=== PATIENT | male | born 1970 | race Caucasian/White ===

== ENCOUNTER 2016-09-14 00:41 | Emergency (ER) | payer OTHER ==
[~2016-09-14] VITALS: Ht 188 cm; Wt 78.7 kg
[~2016-09-14 00:41] MED LIST: CLEOCIN300 MG PO; FLEXERIL10 MG PO; LORTAB 5-325 M1 EACH PO; LORTAB 5-500 T1 EACH PO; MOTRIN600 MG PO; MOTRIN800 MG PO; NAPROSYN250 MG PO; NO HOME MEDS; NORCO 5/3251 TABLET PO; OXAYDO5 MG PO; OXYCODONE HCL5 MG PO; OXYCONTIN20 MG PO; SUMATRIPTAN SUC50 MG PO; TOPAMAX25 MG PO; ZOFRAN4 MG PO
[2016-09-14 00:44] VITALS: BP 116/76
== END 2016-09-14 02:07 | disposition left against medical advice (07) ==
LOC: EME 00:41
DX: F10.129 Alcohol abuse with intoxication, unspecified (principal); F17.200 Nicotine dependence, unspecified, uncomplicated
CPT/HCPCS: 99281; 99284

== ENCOUNTER 2017-02-11 13:19 | Emergency (ER) | payer OTHER ==
[~2017-02-11] VITALS: Ht 188 cm; Wt 73.3 kg
[2017-02-11] MEDS ORDERED: MOTRIN800 MG PO (14:34)
== END 2017-02-11 15:23 | disposition home or self-care (01) ==
LOC: EME 13:19
DX: S93.601A Unspecified sprain of right foot, initial encounter (principal); W22.8XXA Striking against or struck by other objects, initial encounter; Y93.89 Activity, other specified
CPT/HCPCS: 73630; 99281; 99284

== ENCOUNTER 2017-04-18 05:51 | Emergency (ER) | payer OTHER ==
[~2017-04-18] VITALS: Ht 188 cm; Wt 78.5 kg
[2017-04-18 06:34] LABS: INFLUENZA A VIRAL ANTIGEN NEGATIVE; INFLUENZA B VIRAL ANTIGEN NEGATIVE
[2017-04-18] MEDS ORDERED: KEPPRA1000 MG PO (07:27)
[2017-04-18] MEDS ORDERED: ZITHROMAX Z-PA250 MG PO (08:46)
[2017-04-18] MEDS ORDERED: PROVENTIL HFA6.7 GM IH (08:46)
[2017-04-18 09:06] VITALS: BP 123/82
== END 2017-04-18 09:07 | disposition home or self-care (01) ==
LOC: EME 05:51
DX: J20.8 Acute bronchitis due to other specified organisms (principal); B34.9 Viral infection, unspecified; F17.200 Nicotine dependence, unspecified, uncomplicated
CPT/HCPCS: 71020; 87502; 94640; 99281; 99284

== ENCOUNTER 2017-10-11 13:36 | Observation (INO) | payer OTHER ==
[~2017-10-11] VITALS: Ht 188 cm; Wt 88.5 kg
[~2017-10-11 13:36] MED LIST changes: +KEPPRA1000 MG PO; +PROVENTIL HFA6.7 GM IH; +ZITHROMAX Z-PA250 MG PO
[2017-10-11 14:50] LABS: HEMATOCRIT 47.3 % (38.0-50.0); HEMOGLOBIN 16.4 G/DL (12.5-16.6); MCH 33.4 PG (29.0-34.0); MCHC 34.7 G/DL (30.0-36.0); MCV 96.3 FL (86-99); PLATELET COUNT 252 K/uL (156-360); RBC DIS.WIDTH-CV 13.8 % (11.8-14.6); RBC DIS.WIDTH-SD 48.8 % (39-53); RED BLOOD COUNT 4.91 M/uL (4.00-5.50); WHITE BLOOD COUNT 10.1 K/uL (4.1-10.2)
[2017-10-11 15:01] LABS: CHLORIDE 106 mEq/L (99-109); POTASSIUM 4.2 mEq/L (3.7-5.4); SODIUM 142 mEq/L (136-147)
[2017-10-11 15:02] LABS: GLUCOSE 88 mg/dL (70-99)
[2017-10-11 15:06] LABS: CREATININE 0.9 mg/dL (0.6-1.3); GFR ESTIMATE (CALCULATED) > 59 mL/min/ (58.99-99999)
[2017-10-11 15:07] LABS: UREA NITROGEN (BUN) 16 mg/dL (9-23)
[2017-10-11 18:26] LABS: TROP-I INTERPRETATION NEGATIVE; TROPONIN-I < 0.01 ng/mL (0.0-0.30)
[2017-10-11] MEDS ORDERED: INDERAL60 MG PO (19:25)
[2017-10-11 19:39] LABS: TROP-I INTERPRETATION NEGATIVE; TROPONIN-I < 0.01 ng/mL (0.0-0.30)
[2017-10-11 21:02] LABS: D-DIMER ELISA < 150.00 ng/mLDDU (<230)
[2017-10-11 22:09] VITALS: BP 147/92
[2017-10-12 04:31] VITALS: BP 134/80
[2017-10-12 06:22] LABS: TROP-I INTERPRETATION NEGATIVE; TROPONIN-I < 0.01 ng/mL (0.0-0.30)
[2017-10-12 06:24] LABS: BASOPHIL (%) 0.9 % (0-1); BASOPHIL COUNT 0.1 K/uL (0-0.1); EOSINOPHIL COUNT 0.2 K/uL (0-0.3); HEMATOCRIT 42.3 % (38.0-50.0); HEMOGLOBIN 14.2 G/DL (12.5-16.6); IMMATURE GRANULOCYTE (%) 0.7 % (0.0-0.7); LYMPHOCYTE (%) 37.5 % (15-42); LYMPHOCYTE COUNT 2.9 K/uL (1.0-2.8); MCH 32.3 PG (29.0-34.0); MCHC 33.6 G/DL (30.0-36.0); MCV 96.4 FL (86-99); MONOCYTE (%) 11.6 % (3-12); MONOCYTE COUNT 0.9 K/uL (0-0.8); NEUTROPHIL (%) 46.3 % (45-76); NEUTROPHIL COUNT 3.6 K/uL (1.8-6.4); PLATELET COUNT 209 K/uL (156-360); RBC DIS.WIDTH-CV 13.8 % (11.8-14.6); RBC DIS.WIDTH-SD 49.2 % (39-53); RED BLOOD COUNT 4.39 M/uL (4.00-5.50); WHITE BLOOD COUNT 7.7 K/uL (4.1-10.2)
[2017-10-12 06:39] LABS: ALBUMIN 3.6 G/DL (3.2-4.8); ALKALINE PHOSPHATASE 61 IU/L (3-129); ALT (GPT) 21 IU/L (3-49); AST (GOT) 16 IU/L (2-34); CHLORIDE 110 MEQ/L (99-109); CREATININE 0.8 MG/DL (0.6-1.3); DIRECT BILIRUBIN 0.1 mg/dL (0.0-0.3); GFR ESTIMATE (CALCULATED) > 59 mL/min/ (58.99-99999); GLUCOSE 93 mg/dL (70-99); POTASSIUM 4.1 MEQ/L (3.7-5.4); SODIUM 142 MEQ/L (136-147); TOTAL BILIRUBIN 0.5 MG/DL (0.0-1.0); TOTAL PROTEIN 5.8 G/DL (6.4-8.3); UREA NITROGEN (BUN) 16 mg/dL (9-23)
[2017-10-12 07:01] LABS: BENZODIAZEPINES, URINE SCREEN Negative (200 ng/mL)
[2017-10-12 10:30] VITALS: BP 129/87
[2017-10-12 11:13] VITALS: BP 124/85
[2017-10-12 12:43] LABS: TROP-I INTERPRETATION NEGATIVE; TROPONIN-I < 0.01 ng/mL (0.0-0.30)
== END 2017-10-12 13:30 | disposition home or self-care (01) ==
LOC: EME 13:36 → EDOF 20:29 → ENRESERV 20:32 → 5WEST 21:28 → ENPENDDIS 10-12 12:38 → 5WEST 10-12 13:30
PROVIDERS: Hospitalist; Nurse Practitioner Family
DX: R07.89 Other chest pain (principal); R55 Syncope and collapse; E04.1 Nontoxic single thyroid nodule; G40.909 Epilepsy, unspecified, not intractable, without status epilepticus; Z86.69 Personal history of other diseases of the nervous system and sense organs; F17.200 Nicotine dependence, unspecified, uncomplicated; Z82.49 Family history of ischemic heart disease and other diseases of the circulatory system
CPT/HCPCS: 70450; 70553; 71046; 71275; 80048; 80076; 80306 90; 84484; 85025; 85027; 85379; 85610; 85730; 93005; 93880; 99281; 99285; G0378; J1650; J7030

== ENCOUNTER 2017-12-24 08:38 | Emergency (ER) | payer OTHER ==
[~2017-12-24] VITALS: Ht 188 cm; Wt 89.8 kg
[~2017-12-24 08:38] MED LIST changes: +INDERAL60 MG PO
[2017-12-24 09:35] VITALS: BP 141/101
== END 2017-12-24 09:37 | disposition home or self-care (01) ==
LOC: EME 08:38
PROC: 2W3JX1Z Immobilization of Right Finger using Splint (ICD-10-PCS; principal; 2017-12-24)
DX: S63.616A Unspecified sprain of right little finger, initial encounter (principal); W23.1XXA Caught, crushed, jammed, or pinched between stationary objects, initial encounter; F17.200 Nicotine dependence, unspecified, uncomplicated
CPT/HCPCS: 73140; 99281; 99284